=== PATIENT | female | born 1950 | race Two or more races ===

== ENCOUNTER 2016-07-31 08:57 | Emergency (ER) | payer MEDICAID ==
[~2016-07-31 08:57] MED LIST: ACETAMINOPHEN325 M1 PO; AMOXICILLIN500 MG PO; AMOXIL500 MG PO; ASPIRIN EC81 MG PO; ATENOLOL/CHLOR1 EACH PO; ATENOLOL100 MG PO; ATENOLOL50 MG PO; ATORVASTATIN CA20 MG PO; COMPAZINE10 M PO; COMPAZINE25 MG/SUPP PR; CYCLOBENZAPRINE10 M1 PO; CYMBALTA30 MG; CYMBALTA30 MG PO; FIORICET TABLET1 TAB PO; FIORICET1 TAB PO; FISH OIL 11000 MG/CA PO; FLEXERIL10 MG PO; GABAPENTIN100 M1 PO; HYDROCORTISONE30 G9 TP; IBUPROFEN600 M1 PO; IBUPROFEN600 MG PO; K-DUR10 ME1 PO; K-TAB ER20 ME1 PO; LEVAQUIN750 MG PO; LIPITOR10 MG; LIPITOR20 MG; LIPITOR40 MG PO; LIPITOR80 M1 PO; LORTAB 5/5001 EA PO; MECLIZINE HCL12.5 M3 PO; METFORMIN HCL500 M4 PO; METFORMIN HCL850 M1 PO; MOBIC15 MG; MOBIC7.5 M2 PO; NORCO 5-325 TA1 EACH PO; NORCO 5/325 TAB1 TAB PO; OMEPRAZOLE20 M3 PO; ORPHENADRINE C100 M1 PO; PATADAY2.5 M1 OP; PATADAY2.5 ML OP; PATANOL5 ML OP; PAXIL20 MG; POTASSIUM CHLO10 ME2 PO; POTASSIUM CHLO10 MEQ PO; POTASSIUM20 MEQ/12 PO; PRAVACHOL20 MG PO; PRAVACHOL40 MG PO; PREDNISONE20 M1 PO; PRILOSEC OTC20 MG PO; PRILOSEC20 MG; PRINIVIL5 M1 PO; PROMETHAZINE-C118 ML PO; SYMBICORT 80-46.9 GM IH; TENORMIN100 M1 PO; TRAMADOL HCL50 MG PO; TRAZODONE HCL50 M1 PO; ULTRAM50 MG PO; VICODIN 5/500 T1 TAB; VOLTAREN100 G1 TP; VOLTAREN50 MG; ZITHROMAX250 M1 PO; ZITHROMAX250MG Z-PAK PO; ZOFRAN ODT4 MG/UDTAB PO; ZYRTEC10 MG PO
[2016-07-31 10:44] LABS: URINE BILIRUBIN NEGATIVE (NEG); URINE BLOOD MODERATE (NEG); URINE GLUCOSE (UA) NEGATIVE (NEG); URINE KETONE NEGATIVE (NEG); URINE LEUKOCYTE ESTERASE NEGATIVE (NEG); URINE NITRITE NEGATIVE (NEG); URINE PROTEIN MODERATE (NEG); URINE SPECIFIC GRAVITY 1.015 (1.003-1.030)
[2016-07-31 10:46] LABS: URINE APPEARANCE CLEAR; URINE COLOR YELLOW
[2016-07-31 10:56] LABS: URINE MUCUS 3+
[2016-07-31] MEDS ORDERED: ANUSOL-HC30 G1 TOP (11:36)
[2016-09-17] MEDS ORDERED: ZANAFLEX4 M2 PO (07:47)
[2016-09-17] MEDS ORDERED: TYLENOL EXTRA500 M1 PO (07:48)
[2016-09-17] MEDS ORDERED: AUGMENTIN 875-1 EAC2 PO (08:42)
== END 2016-07-31 12:07 ==
LOC: EDMED 08:57
PROVIDERS: Emergency Medicine
PROC: 06BY0ZC Excision of Hemorrhoidal Plexus, Open Approach (ICD-10-PCS; principal; 2016-07-31)
DX: K64.5 Perianal venous thrombosis (principal); R07.0 Pain in throat; R05 Cough
CPT/HCPCS: P9612